=== PATIENT | male | born 1955 | race Caucasian/White ===

== ENCOUNTER 2016-09-06 16:41 | Emergency (ER) | payer MEDICARE, OTHER ==
[~2016-09-06] VITALS: Ht 182.9 cm; Wt 172.4 kg
[~2016-09-06 16:41] MED LIST: AMLO5TAB2 PO; ASPI-482 PO; ATOR20TA58 PO; BUPR150T8 PO; CYCL10TA2 PO; ETOD400T PO; FENO145T2 PO; FURO-69 PO; INSU100C4 SQ; INSU100V13 SQ; LISI40TA PO; MONT10TA6 PO; OXYC-250 PO; OXYC10TA32 PO; SITA1TAB11 PO
[2016-09-06 16:53] VITALS: BP 182/92
[2016-09-06] MEDS ORDERED: BUPIVACAINE MPF 0.25% 10 ML VIAL. IJ ONE (17:15)
--- NOTE | 2016-09-06 17:36 | PHYS DOC ---
Past Medical History Past Medical History: Diabetes-Type II, Hypertension Additional Past Medical Histor: chronic back, ankle, knee pain Past Surgical History: Tonsillectomy, Other Additional Past Surgical Histo: bilat arm surgery Alcohol Use: None Drug Use: None Adult General Chief Complaint Chief Complaint: LACERATION/AVULSION [facility] HPI Patient is a 61 year old male presents emergency Department with complaint of a laceration to his left hand that occurred approximately an hour prior to arrival. Patient states he is using an X-Acto knife when he cut his hand. Patient denies any additional injuries or concerns at this time. He denies any numbness or tingling. He denies being on anticoagulants. Patient reports his last tetanus shot was approximately 2 years ago. Review of Systems Review of Systems Constitutional: Denies fever or chills [] Eyes: Denies change in visual acuity, redness, or eye pain [] HENT: Denies nasal congestion or sore throat [] Respiratory: Denies cough or shortness of breath [] Cardiovascular: No additional information not addressed in HPI [] GI: Denies abdominal pain, nausea, vomiting, bloody stools or diarrhea [] : Denies dysuria or hematuria [] Musculoskeletal: Denies back pain or joint pain [] Integument: Denies rash or skin lesions [] Neurologic: Denies headache, focal weakness or sensory changes [] Endocrine: Denies polyuria or polydipsia [] Current Medications Current Medications Current Medications Medications (Trade) Dose Ordered Sig/Pradeep Start Time Stop Time Status Last Admin Dose Admin Bupivacaine HCl (Sensorcaine-Mpf 0.25%) 10 ml 1X ONCE 09/06/16 17:15 09/06/16 17:16 DC 09/06/16 17:11 10 ML Allergies Allergies Allergies Coded Allergies Type Severity Reaction Last Updated Verified Sulfa (Sulfonamide Antibiotics) Allergy Intermediate Rash 06/17/15 No Physical Exam Physical Exam Constitutional: Well developed, well nourished, no acute distress, non-toxic appearance. [] HENT: Normocephalic, atraumatic, bilateral external ears normal, oropharynx moist, no oral exudates, nose normal. [] Eyes: PERRLA, EOMI, conjunctiva normal, no discharge. [] Neck: Normal range of motion, no tenderness, supple, no stridor. [] Cardiovascular:Heart rate regular rhythm, no murmur [] Lungs & Thorax: Bilateral breath sounds clear to auscultation [] Abdomen: Bowel sounds normal, soft, no tenderness, no masses, no pulsatile masses. [] Skin: Warm, dry, no erythema, no rash. [] Back: No tenderness, no CVA tenderness. [] Extremities: 3 similar laceration to the left thenar eminence. This laceration does extend into the thenar muscle. Patient is able to circumduct, flex and extend his thumb at the first MCP J and IPJ. Thumbs neurovascular intact with capillary refill less than 2 seconds. Neurologic: Alert and oriented X 3, normal motor function, normal sensory function, no focal deficits noted. [] Psychologic: Affect normal, judgement normal, mood normal. [] Current Patient Data Vital Signs Vital Signs Date Time Temp Pulse Resp B/P Pulse Ox O2 Delivery O2 Flow Rate FiO2 09/06/16 16:53 98.0 80 22 100 Room Air 98.0 EKG EKG [] Radiology/Procedures Radiology/Procedures Procedure note: 3 cm laceration was anesthetized with 0.25% Marcaine. Wound was cleansed with Betadine solution and rinsed with copious amounts of saline. Wound was explored for foreign bodies. No foreign bodies were found. Wound margins were approximated utilizing 4-0 Prolene in a simple interrupted fashion of a deep, single-layer closure for total of 6 stitches. Pressure dressing was placed over top the wound. Patient tolerated the procedure well. Patient was reexamined post bandaging in all 5 fingers are found to be neurovascularly intact with capillary refill less than 2 seconds. Course & Med Decision Making Course & Med Decision Making Pertinent Labs and Imaging studies reviewed. (See chart for details) [] Dragon Disclaimer Dragon Disclaimer This electronic medical record was generated, in whole or in part, using a voice recognition dictation system. Departure Departure Impression: Primary Impression: Laceration Disposition: 01 HOME, SELF-CARE Condition: IMPROVED Referrals: OMERO COHN MD (PCP) Patient Instructions: Laceration Care, Adult, [id number] Additional Instructions: 1. Stitches need to be removed in 7-10 days. 2. Review the discharge instructions provided for self-care and reasons to return to the emergency department. 3. Keep this initial dressing on until tomorrow morning. Your okay to wash your hands and shower without a dressing beginning tomorrow. Keep the area dressed during periods of activity. 4. Contact her primary care doctor's office Thursday morning to schedule follow- up appointment for wound evaluation and suture removal. SHAINA MCKINNON Sep 06, 2016 17:36
== END 2016-09-06 17:46 | disposition home or self-care (01) ==
LOC: ER 16:41
DX: S61.412A Laceration without foreign body of left hand, initial encounter (principal); I10 Essential (primary) hypertension; E11.9 Type 2 diabetes mellitus without complications; G89.29 Other chronic pain; Z88.2 Allergy status to sulfonamides; W26.0XXA Contact with knife, initial encounter; Y93.89 Activity, other specified; Y99.8 Other external cause status; Y92.89 Other specified places as the place of occurrence of the external cause
CPT/HCPCS: 12002; 99283; J3490

== ENCOUNTER 2017-10-16 10:21 | Emergency (ER) | payer OTHER ==
[2017-10-16 11:49] LABS: ADD MAN DIFF? NO
[2017-10-16 12:11] LABS: BASO % 1 % (0-3); EOS # 0.2 x10^3/uL (0.0-0.7); EOS % 3 % (0-3); HEMATOCRIT 41.3 % (39.0-53.0); HEMOGLOBIN 14.1 g/dL (13.0-17.5); LYMPH # 1.4 x10^3/uL (1.0-4.8); LYMPH % 19 % (24-48); MEAN CORPUSCULAR HEMOGLOBIN 30 pg (25-35); MEAN CORPUSCULAR HGB CONC 34 g/dL (31-37); MEAN CORPUSCULAR VOLUME 87 fL (79-100); MONO # 0.4 x10^3/uL (0.0-1.1); MONO % 5 % (0-9); NEUT # 5.3 x10^3uL (1.8-7.7); NEUT % 72 % (31-73); PLATELET COUNT 208 x10^3/uL (140-400); RED BLOOD COUNT 4.73 x10^6/uL (4.30-5.70); RED CELL DISTRIBUTION WIDTH 14.8 % (11.5-14.5); WHITE BLOOD COUNT 7.4 x10^3/uL (4.0-11.0)
[2017-10-16 12:17] LABS: ALBUMIN 3.9 g/dL (3.4-5.0); ALBUMIN/GLOBULIN RATIO 1.1 (1.0-1.7); ALK PHOS 61 U/L (46-116); ALT (SGPT) 49 U/L (16-63); ANION GAP 9 (6-14); AST (SGOT) 32 U/L (15-37); BLOOD UREA NITROGEN 35 mg/dL (8-26); BUN/CREATININE RATIO 21 (6-20); CALCIUM 9.2 mg/dL (8.5-10.1); CARBON DIOXIDE 25 mmol/L (21-32); CHLORIDE 106 mmol/L (98-107); CREATININE 1.7 mg/dL (0.7-1.3); GFR 41.3; GLUCOSE 141 mg/dL (70-99); POTASSIUM 4.9 mmol/L (3.5-5.1); SODIUM 140 mmol/L (136-145); TOTAL BILIRUBIN 0.5 mg/dL (0.2-1.0); TOTAL PROTEIN 7.3 g/dL (6.4-8.2)
[2017-10-16 12:20] LABS: TROPONINI < 0.017 ng/mL (0.000-0.055)
[2017-10-16 12:48] LABS: NT-PRO BNP 108 pg/mL (0-124)
== END 2017-10-16 13:09 | disposition home or self-care (01) ==
LOC: ER 10:21
DX: J18.9 Pneumonia, unspecified organism (principal); E11.9 Type 2 diabetes mellitus without complications; I10 Essential (primary) hypertension; G89.29 Other chronic pain; E78.00 Pure hypercholesterolemia, unspecified; Z88.2 Allergy status to sulfonamides
CPT/HCPCS: 36415; 71045; 80053; 83880; 84484; 85025; 93005; 99285-25

== ENCOUNTER → 2017-11-04 | Day surgery (SDC) | payer OTHER ==
[~2017-11-04] MED LIST changes: -AMLO5TAB2 PO; -ASPI-482 PO; -ATOR20TA58 PO; -BUPR150T8 PO; -CYCL10TA2 PO; -ETOD400T PO; -FENO145T2 PO; -FURO-69 PO; -INSU100C4 SQ; -INSU100V13 SQ; +LIDOCAINE 1% PF 2 ML VIAL. ID; -LISI40TA PO; -MONT10TA6 PO; +MORPHINE SULFATE 4 MG/ML DISP.SYRIN. IV; +ONDANSETRON PF 4 MG/2 ML VIAL. IV; -OXYC-250 PO; -OXYC10TA32 PO; +PROCHLORPERAZINE 10 MG/2 ML VIAL. IV; +PROPOFOL 20 ML IV; -SITA1TAB11 PO; +fentaNYL PF VIAL 100 MCG/2 ML VIAL IV
[2017-11-04] MEDS: IV RINGERS,LACTATED 1000ML 1,000 ML IV ×2 (07:27)
== END ==
LOC: ENDOS 06:45
DX: Z12.11 Encounter for screening for malignant neoplasm of colon (principal); K64.0 First degree hemorrhoids (principal); F41.9 Anxiety disorder, unspecified; Z86.010 Personal history of colon polyps; M19.90 Unspecified osteoarthritis, unspecified site; E11.9 Type 2 diabetes mellitus without complications; E78.00 Pure hypercholesterolemia, unspecified; I10 Essential (primary) hypertension; J45.909 Unspecified asthma, uncomplicated; Z83.3 Family history of diabetes mellitus; Z82.49 Family history of ischemic heart disease and other diseases of the circulatory system; Z79.84 Long term (current) use of oral hypoglycemic drugs; Z79.899 Other long term (current) drug therapy; E66.3 Overweight; Z68.43 Body mass index [BMI] 50.0-59.9, adult; Z88.2 Allergy status to sulfonamides; Z91.040 Latex allergy status
CPT/HCPCS: 45378; J2704

== ENCOUNTER 2020-01-02 12:57 | Inpatient (IN) | payer OTHER, MEDICAID ==
[~2020-01-02] VITALS: Ht 180.3 cm; Wt 164.0 kg
[~2020-01-02 12:57] MED LIST changes: +AMLO10TA8 PO; +AMLO5TAB10 PO; +ASPI-482 PO; +ATOR20TA58 PO; +BUPR150T8 PO; +CYCL10TA2 PO; +DOXY100T PO; +ETOD400T PO; +FENO145T3 PO; +FURO-69 PO; +INSU100C4 SQ; +INSU100V13 SQ; +INSU200I4 SQ; -LIDOCAINE 1% PF 2 ML VIAL. ID; +LISI-130 PO; +MONT10TA49 PO; -MORPHINE SULFATE 4 MG/ML DISP.SYRIN. IV; -ONDANSETRON PF 4 MG/2 ML VIAL. IV; +OXYC10TA46 PO; +OXYC1TAB22 PO; -PROCHLORPERAZINE 10 MG/2 ML VIAL. IV; -PROPOFOL 20 ML IV; +SITA1TAB11 PO; +TRIA1TAB5 PO; -fentaNYL PF VIAL 100 MCG/2 ML VIAL IV
[2020-01-02 13:39] LABS: BASO % 1 % (0-3); EOS # 0.2 x10^3/uL (0.0-0.7); EOS % 4 % (0-3); HEMATOCRIT 39.4 % (39.0-53.0); HEMOGLOBIN 13.4 g/dL (13.0-17.5); LYMPH # 1.1 x10^3/uL (1.0-4.8); LYMPH % 19 % (24-48); MEAN CORPUSCULAR HEMOGLOBIN 30 pg (25-35); MEAN CORPUSCULAR HGB CONC 34 g/dL (31-37); MEAN CORPUSCULAR VOLUME 87 fL (79-100); MONO # 0.4 x10^3/uL (0.0-1.1); MONO % 7 % (0-9); NEUT # 4.1 x10^3/uL (1.8-7.7); NEUT % 69 % (31-73); PLATELET COUNT 182 x10^3/uL (140-400); RED BLOOD COUNT 4.55 x10^6/uL (4.30-5.70); RED CELL DISTRIBUTION WIDTH 14.3 % (11.5-14.5); WHITE BLOOD COUNT 5.9 x10^3/uL (4.0-11.0)
[2020-01-02 13:44] LABS: CALCIUM 8.9 mg/dL (8.5-10.1); CREATININE 2.9 mg/dL (0.7-1.3); GFR 22.2; POTASSIUM 4.8 mmol/L (3.5-5.1)
[2020-01-02 13:48] LABS: PROTHROMBIN TIME PATIENT 13.3 SEC (11.7-14.0)
[2020-01-02 13:50] LABS: ALBUMIN 3.8 g/dL (3.4-5.0); ALBUMIN/GLOBULIN RATIO 1.1 (1.0-1.7); MAGNESIUM 2.2 mg/dL (1.8-2.4); TOTAL BILIRUBIN 0.4 mg/dL (0.2-1.0); TOTAL PROTEIN 7.4 g/dL (6.4-8.2)
--- NOTE | 2020-01-02 14:10 | RAD ---
PORTABLE CHEST 1V History: Reason: soa / Spl. Instructions: / History: Comparison: July 25, 2018 Findings: No consolidation or pleural effusion. Normal heart size. No pneumothorax. Impression: 1. No acute cardiopulmonary process. Electronically signed by: Wes Gabriel DO (01/02/2020 2:07 PM) [facility] [place]
--- NOTE | 2020-01-02 15:44 | PHYS DOC ---
Past Medical History Past Medical History: Diabetes-Type II, High Cholesterol, Hypertension, Pneumonia, Other Additional Past Medical Histor: chronic back/ankle/knee pain, OBESE Past Surgical History: Tonsillectomy, Other Additional Past Surgical Histo: bilat Carpel tunnel/Radial nerve/EYE Smoking Status: Never Smoker Alcohol Use: None Drug Use: None General Adult EDM: Chief Complaint: SHORTNESS OF BREATH HPI: HPI: Patient is a 64 year old male who presented to ER today for evaluation of 4-day history of trouble breathing, general weakness. Patient feels like he had pneumonia again. Patient denies any fever. Patient states that today he start having left side substernal chest pain associated with dyspnea on exertion. Patient denies any fever, patient denies abdominal pain, no nausea vomiting. Patient said he is on some medication to control his blood pressure but also really moved fluid from his body, he felt that he is on too much of it because sometimes he feels really dry. Patient denies any kidney problem in the past. Denies being exposed to anybody who tested positive for COVID-19. Review of Systems: Review of Systems: Constitutional: Denies fever or chills. [] Eyes: Denies change in visual acuity. [] HENT: Denies nasal congestion or sore throat. [] Respiratory: Positive for cough and trouble breathing Cardiovascular: Positive for chest pain GI: Denies abdominal pain, nausea, vomiting, bloody stools or diarrhea. [] : Denies dysuria. [] Musculoskeletal: Denies back pain or joint pain. [] Integument: Denies rash. [] Neurologic: Denies headache, focal weakness or sensory changes. [] Endocrine: Denies polyuria or polydipsia. [] Lymphatic: Denies swollen glands. [] Psychiatric: Denies depression or anxiety. [] Heart Score: HEART Score for Chest Pain: HEART Score for Chest Pain Response (Comments) Value History Moderately Suspicious 1 ECG Nonspecific Repolarizatio 1 Age >45 - < 65 1 Risk Factors >3 Risk Factors or Hx CAD 2 Total 5 Risk Factors: Risk Factors: DM, Current or recent (<one month) smoker, HTN, HLP, family history of CAD, obesity. Risk Scores: Score 0 - 3: 2.5% MACE over next 6 weeks - Discharge Home Score 4 - 6: 20.3% MACE over next 6 weeks - Admit for Clinical Observation Score 7 - 10: 72.7% MACE over next 6 weeks - Early Invasive Strategies Current Medications: Current Medications Medications (Trade) Dose Ordered Sig/Pradeep Start Time Stop Time Status Last Admin Dose Admin Sodium Chloride 1,000 ml @ 1,000 mls/hr 1X ONCE 01/02/20 15:45 01/02/20 16:44 Allergies: Allergies: Allergies Coded Allergies Type Severity Reaction Last Updated Verified Sulfa (Sulfonamide Antibiotics) Allergy Intermediate Rash 11/04/17 No Physical Exam: PE: Constitutional: Well developed, well nourished, no acute distress, non-toxic appearance. [] HENT: Normocephalic, atraumatic, bilateral external ears normal, oropharynx moist, no oral exudates, nose normal. [] Eyes: PERRLA, EOMI, conjunctiva normal, no discharge. [] Neck: Normal range of motion, no tenderness, supple, no stridor. [] Cardiovascular:Heart rate regular rhythm, no murmur [] Lungs & Thorax: Bilateral breath sounds clear to auscultation [] Abdomen: Bowel sounds normal, soft, no tenderness, no masses, no pulsatile masses. [] Skin: Warm, dry, no erythema, no rash. [] Back: No tenderness, no CVA tenderness. [] Extremities: No tenderness, no cyanosis, no clubbing, ROM intact, no edema. [] Neurologic: Alert and oriented X 3, normal motor function, normal sensory function, no focal deficits noted. [] Psychologic: Affect normal, judgement normal, mood normal. [] Current Patient Data: Labs: Laboratory Tests Test 01/02/20 13:22 White Blood Count 5.9 x10^3/uL (4.0-11.0) Red Blood Count 4.55 x10^6/uL (4.30-5.70) Hemoglobin 13.4 g/dL (13.0-17.5) Hematocrit 39.4 % (39.0-53.0) Mean Corpuscular Volume 87 fL (79-100) Mean Corpuscular Hemoglobin 30 pg (25-35) Mean Corpuscular Hemoglobin Concent 34 g/dL (31-37) Red Cell Distribution Width 14.3 % (11.5-14.5) Platelet Count 182 x10^3/uL (140-400) Neutrophils (%) (Auto) 69 % (31-73) Lymphocytes (%) (Auto) 19 % (24-48) L Monocytes (%) (Auto) 7 % (0-9) Eosinophils (%) (Auto) 4 % (0-3) H Basophils (%) (Auto) 1 % (0-3) Neutrophils # (Auto) 4.1 x10^3/uL (1.8-7.7) Lymphocytes # (Auto) 1.1 x10^3/uL (1.0-4.8) Monocytes # (Auto) 0.4 x10^3/uL (0.0-1.1) Eosinophils # (Auto) 0.2 x10^3/uL (0.0-0.7) Basophils # (Auto) 0.0 x10^3/uL (0.0-0.2) Prothrombin Time 13.3 SEC (11.7-14.0) Prothrombin Time INR 1.1 (0.8-1.1) Activated Partial Thromboplast Time 27 SEC (24-38) Sodium Level 136 mmol/L (136-145) Potassium Level 4.8 mmol/L (3.5-5.1) Chloride Level 103 mmol/L (98-107) Carbon Dioxide Level 27 mmol/L (21-32) Anion Gap 6 (6-14) Blood Urea Nitrogen 54 mg/dL (8-26) H Creatinine 2.9 mg/dL (0.7-1.3) H Estimated GFR (Cockcroft-Gault) 22.2 BUN/Creatinine Ratio 19 (6-20) Glucose Level 104 mg/dL (70-99) H Calcium Level 8.9 mg/dL (8.5-10.1) Magnesium Level 2.2 mg/dL (1.8-2.4) Total Bilirubin 0.4 mg/dL (0.2-1.0) Aspartate Amino Transferase (AST) 15 U/L (15-37) Alanine Aminotransferase (ALT) 31 U/L (16-63) Alkaline Phosphatase 47 U/L (46-116) Troponin I Quantitative < 0.017 ng/mL (0.000-0.055) NM-Jlv-H-Type Natriuretic Peptide 257 pg/mL (0-124) H Total Protein 7.4 g/dL (6.4-8.2) Albumin 3.8 g/dL (3.4-5.0) Albumin/Globulin Ratio 1.1 (1.0-1.7) Lipase 66 U/L (73-393) L Laboratory Tests 01/02/20 13:22 Laboratory Tests 01/02/20 13:22 Vital Signs: Vital Signs Date Time Temp Pulse Resp B/P (MAP) Pulse Ox O2 Delivery O2 Flow Rate FiO2 01/02/20 13:04 98.5 63 20 119/60 (79) 100 Room Air 98.5 EKG: EKG: EKG show heart rate of [address] segment elevation. Radiology/Procedures: Radiology/Procedures: [][facility] [address] [place] [address] IMAGING REPORT Signed PATIENT: AKILA HOLBROOK ACCOUNT: [id number] : 1955 LOCATION: ER AGE: 64 SEX: M EXAM STATUS: REG ER ORD. PHYSICIAN: ДМИТРИЙ RITTER DO REASON: soa PROCEDURE: PORTABLE CHEST 1V PORTABLE CHEST 1V History: Reason: soa / Spl. Instructions: / History: Comparison: July 25, 2018 Findings: No consolidation or pleural effusion. Normal heart size. No pneumothorax. Impression: 1. No acute cardiopulmonary process. Electronically signed by: Wes Gabriel DO (01/02/2020 2:07 PM) [facility] DICTATED and SIGNED BY: WES GABRIEL DO DATE: 01/02/20 1407 Course & Med Decision Making: Course & Med Decision Making Pertinent Labs and Imaging studies reviewed. (See chart for details) Patient is a 64-year-old male who was evaluated in ER due to general weakness, nonproductive cough, trouble breathing, chest pain. Patient was found to be in acute renal failure most likely from the antidiuretic medication that he is on. Patient is suspected have COVID 19 infection due to cough and trouble breathing. His heart score is high, he will be admitted to hospital for further evaluation and treatment. Discussed with Dr. Miranda who agreed to admit the patient Dragnimo Disclaimer: Krystle Disclaimer: This electronic medical record was generated, in whole or in part, using a voice recognition dictation system. Departure Departure Impression: Primary Impression: Acute renal failure Additional Impressions: Chest pain Suspected 2018 novel coronavirus infection Disposition: ADMITTED INPATIENT Admitting Physician: ROBERT (Dr. Miranda) Condition: STABLE Referrals: OMERO COHN MD (PCP) Justicifation of Admission Dx: Justifications for Admission: Justification of Admission Dx: Yes Acute Renal Failure: 3-Fold Rise in Serum Crea ДМИТРИЙ RITTER DO Jan 02, 2020 15:44
[2020-01-02] MEDS ORDERED: IV NORMAL SALINE 1000ML BAG 1,000 ML IV ONE (15:45)
[2020-01-02] MEDS ORDERED: CYCLOBENZAPRINE 10 MG TABLET. PO PRN (20:15)
--- NOTE | 2020-01-02 20:16 | HP ---
ADMIT DATE: 01/02/2020 CHIEF COMPLAINT: Chest pain and shortness of breath. HISTORY OF PRESENT ILLNESS: The patient is a pleasant 64-year-old male who has been short of breath for the past 4 days. He has some weakness. He also has some chest discomfort. States he has chronic edema, so he takes Lasix. He thinks he took too much Lasix and admits that he has been taking more than he was prescribed. Sure enough now his BUN and creatinine are high at 54 and 2.9. His pressures run a little low at 102/39. I discussed the case with the ER physician. We are going to admit the patient and consult Cardiology and Nephrology. PAST MEDICAL HISTORY: Overweight, chronic edema, muscle spasms, hyperlipidemia, hypertension, noncompliance, chronic pain, arthritis, asthma, diabetes. ALLERGIES: SULFA. FAMILY HISTORY: Diabetes. SOCIAL HISTORY: He used to work in a [employer]. He does not smoke or take drugs. MEDICATIONS: Reviewed, please refer to the MRAD. REVIEW OF SYSTEMS: GENERAL: No history of weight change, or fevers. He complains of weakness. SKIN: No bruising, hair changes or rashes. EYES: No blurred, double or loss of vision. NOSE AND THROAT: No history of nosebleeds, hoarseness or sore throat. HEART: No history of palpitations, or shortness of breath on exertion. He complains of chest pain. LUNGS: Denies cough, hemoptysis or wheezing. He complains of shortness of breath. GASTROINTESTINAL: Denies changes in appetite, nausea, vomiting, diarrhea or constipation. GENITOURINARY: No history of frequency, urgency, hesitancy or nocturia. NEUROLOGIC: Denies history of numbness, tingling, tremor or weakness. PSYCHIATRIC: No history of panic, anxiety or depression. ENDOCRINE: No history of heat or cold intolerance, polyuria or polydipsia. EXTREMITIES: He complains of edema. LABORATORY DATA: BUN and creatinine are 54 and 2.9. BNP 257. Troponin 0.017. Lipase 66. INR 1.1. White count 5.9, hemoglobin 13.4, platelets 182. Chest x-ray, no acute disease. ASSESSMENT AND PLAN: Shortness of breath and edema and chest discomfort and renal failure. The patient has been admitted. We will consult Cardiology and Nephrology. Gentle IV hydration if the consultants agree. Home meds, DVT prophylaxis. Full code. Serial enzymes, serial EKGs, cardiac monitoring. We are checking him for COVID-19. ALISE BURGESS DO DR: RAE/bhupinder JOB#: [id number] / [id number]
[2020-01-02 20:35] VITALS: BP 163/79
--- NOTE | 2020-01-02 20:35 | NUR ---
The patient, AKILA HOLBROOK, 64 y/o, M admitted by ALISE BURGESS III, DO, was given written information regarding hospital policies, unit procedures and contact persons. patient arrived to room via wheelchair assisted by ED staff member. Valuables were checked and noted. Patient is currently sitting in bed watching TV at this time. Patient denies any needs at this time. This RN will continue to monitor the patient at this time.
[2020-01-02] MEDS ORDERED: ATORVASTATIN CALCIUM 20 MG TABLET PO SCH (21:00)
[2020-01-02] MEDS: oxyCODONE/APAP 10/325 1 TAB TABLET PO SCH (21:38)
[2020-01-02 23:00] VITALS: BP 162/72
[2020-01-03 02:50] VITALS: BP 161/75
--- NOTE | 2020-01-03 03:05 | EKG ---
[facility] [address] [place] [address] Test Date: 2020-01-02 Test Time: 13:13:03 Pat Name: AKILA HOLBROOK Department: Room: Gender: M Electrical Contractor: : 1955 Requested By: ДМИТРИЙ RITTER Order Number: [id number] Reading MD: Measurements Intervals [place] Rate: 59 P: [place]: QRS: 24 QRSD: 88 T: 116 QT: 400 QTc: 396 Interpretive Statements IRREGULAR RHYTHM, NO P-WAVE FOUND QRS(T) CONTOUR ABNORMALITY CONSIDER ANTEROLATERAL MYOCARDIAL DAMAGE T ABNORMALITY IN INFERIOR LEADS ABNORMAL ECG RI6.01 No previous ECG available for comparison
[2020-01-03 07:15] VITALS: BP 137/87
[2020-01-03] MEDS: oxyCODONE/APAP 10/325 1 TAB TABLET PO SCH ×2 (08:00→14:00)
[2020-01-03] MEDS: MONTELUKAST SODIUM 10 MG TABLET. PO SCH ×2 (08:38→09:00)
[2020-01-03] MEDS: ASPIRIN ENTERIC COATED 81 MG TABLET.DR. PO SCH ×2 (08:39→09:00)
[2020-01-03] MEDS ORDERED: LISINOPRIL 20 MG TABLET PO SCH (09:00)
--- NOTE | 2020-01-03 09:53 | NUR ---
SW following. Spoke with RN and reviewed chart. Pt from home with roommate. Spoke with pt who stated he would like to discharge today if possible, as he wants to get home to his pets. Pt stated not concerns about returning home. Nephrology has been consulted. Pt on room air and PO medications. Pt COVID pending. SW to follow as needed but there are likely no SW needs at discharge. Addendum: 01/03/20 at 1611 by ALFA PURI RN notified SW of pt discharge. No SW needs per RN. Pt on room air and oral medications.
[2020-01-03 11:04] VITALS: BP 165/74
--- NOTE | 2020-01-03 11:31 | PDOC ---
[employer] PROGRESS NOTE Chief Complaint Chief Complaint Shortness of breath and edema and chest discomfort and renal failure. Overweight, chronic edema, muscle spasms, hyperlipidemia, hypertension, noncompliance, chronic pain, arthritis, asthma, diabetes. History of Present Illness History of Present Illness 01/03/2020 Patient seen and examined Discussed with RN Chart reviewed Vitals/I&O Vitals/I&O: Vital Signs Date Time Temp Pulse Resp B/P (MAP) Pulse Ox O2 Delivery O2 Flow Rate FiO2 01/03/20 11:04 97.7 67 23 165/74 (104) 93 Nasal Cannula 97.7 I & O 01/02/20 01/02/20 01/03/20 15:00 23:00 07:00 Intake Total 1000 ml Output Total 200 ml Balance 800 ml Physical Exam General: Alert, Oriented X3, Other (Insist on going home because he has 13 cats to care for) Heart: Regular rate Lungs: Clear, Other Abdomen: Normal bowel sounds Extremities: No clubbing Skin: No rashes Labs Labs: Laboratory Tests Test 01/02/20 13:22 White Blood Count 5.9 x10^3/uL (4.0-11.0) Red Blood Count 4.55 x10^6/uL (4.30-5.70) Hemoglobin 13.4 g/dL (13.0-17.5) Hematocrit 39.4 % (39.0-53.0) Mean Corpuscular Volume 87 fL (79-100) Mean Corpuscular Hemoglobin 30 pg (25-35) Mean Corpuscular Hemoglobin Concent 34 g/dL (31-37) Red Cell Distribution Width 14.3 % (11.5-14.5) Platelet Count 182 x10^3/uL (140-400) Neutrophils (%) (Auto) 69 % (31-73) Lymphocytes (%) (Auto) 19 % (24-48) Monocytes (%) (Auto) 7 % (0-9) Eosinophils (%) (Auto) 4 % (0-3) Basophils (%) (Auto) 1 % (0-3) Neutrophils # (Auto) 4.1 x10^3/uL (1.8-7.7) Lymphocytes # (Auto) 1.1 x10^3/uL (1.0-4.8) Monocytes # (Auto) 0.4 x10^3/uL (0.0-1.1) Eosinophils # (Auto) 0.2 x10^3/uL (0.0-0.7) Basophils # (Auto) 0.0 x10^3/uL (0.0-0.2) Prothrombin Time 13.3 SEC (11.7-14.0) Prothromb Time International Ratio 1.1 (0.8-1.1) Activated Partial Thromboplast Time 27 SEC (24-38) Sodium Level 136 mmol/L (136-145) Potassium Level 4.8 mmol/L (3.5-5.1) Chloride Level 103 mmol/L (98-107) Carbon Dioxide Level 27 mmol/L (21-32) Anion Gap 6 (6-14) Blood Urea Nitrogen 54 mg/dL (8-26) Creatinine 2.9 mg/dL (0.7-1.3) Estimated GFR (Cockcroft-Gault) 22.2 BUN/Creatinine Ratio 19 (6-20) Glucose Level 104 mg/dL (70-99) Calcium Level 8.9 mg/dL (8.5-10.1) Magnesium Level 2.2 mg/dL (1.8-2.4) Total Bilirubin 0.4 mg/dL (0.2-1.0) Aspartate Amino Transf (AST/SGOT) 15 U/L (15-37) Alanine Aminotransferase (ALT/SGPT) 31 U/L (16-63) Alkaline Phosphatase 47 U/L (46-116) Troponin I Quantitative < 0.017 ng/mL (0.000-0.055) SX-Vmm-V-Type Natriuretic Peptide 257 pg/mL (0-124) Total Protein 7.4 g/dL (6.4-8.2) Albumin 3.8 g/dL (3.4-5.0) Albumin/Globulin Ratio 1.1 (1.0-1.7) Lipase 66 U/L (73-393) Assessment and Plan Assessmemt and Plan Problems Medical Problems: (1) Acute renal failure Status: Acute (2) Chest pain Status: Acute (3) Suspected 2019 novel coronavirus infection Status: Acute Shortness of breath and edema and chest discomfort and renal failure. Overweight, chronic edema, muscle spasms, hyperlipidemia, hypertension, noncompliance, chronic pain, arthritis, asthma, diabetes. Plan If his COVID test is negative I suspect he could go home Continue current care Appreciate subspecialist input Home meds DVT prophylaxis Full code Cardiac monitoring Respiratory isolation until his COVID test is back Comment Review of Relevant I have reviewed the following items gerald (where applicable) has been applied. Medications: Current Medications Medications (Trade) Dose Ordered Sig/Pradeep Route PRN Reason Start Time Stop Time Status Last Admin Dose Admin Sodium Chloride 1,000 ml @ 1,000 mls/hr 1X ONCE IV 01/02/20 15:45 01/02/20 16:44 DC 01/02/20 15:55 Atorvastatin Calcium (Lipitor) 20 mg HS PO 01/02/20 21:00 01/02/20 21:27 Lisinopril (Prinivil) 40 mg DAILY PO 01/03/20 09:00 01/03/20 08:39 Oxycodone/ Acetaminophen (Percocet 10/325) 1 tab Q8HRS PO 01/02/20 22:00 01/02/20 21:38 Justicifation of Admission Dx: Justifications for Admission: Justification of Admission Dx: Yes Acute Renal Failure: 3-Fold Rise in Serum Crea ALISE BURGESS III DO Jan 03, 2020 11:31
--- NOTE | 2020-01-03 12:08 | PDOC2 ---
CONSULT Date of Consult Date of Consult DATE: 01/03/20 TIME: 12:01 Reason for Consult Reason for Consult: RENAL FAILURE Referring Physician Referring Physician: JENIFER Identification/Chief Complaint Chief Complaint SOB Source Source: Chart review, Patient History of Present Illness Reason for Visit: THIS IS A 64 YR OLD WITH SOB FOR SEVERAL DAYS. BUT FEELS THIS IS MOSTLY NASAL CONGESTION. HX NOTABLE FOR CKD STAGE 3. HAS NOT SEEN RENAL IN THE PAST. HAS A CR OF 1.5-2.0 AT BASELINE. CURRENTLY CR OF 2.9. STATES THAT HE IS VERY LABILE WITH HIS FLUIDS. HAS NEEDED TO ADJUST AND EVEN HOLD HIS DIURETICS AT TIMES. HE FEELS THAT HE MAY HAVE USED TOO MUCH RECENTLY. USUALLY HAS LE EDEMA BUT THIS IS RESOLVED AT THIS TIME. CKD DUE TO DM II AND HTN. NO OTHER HX Past Medical History Cardiovascular: CAD, HTN, Hyperlipidemia, Other Pulmonary: Asthma CENTRAL NERVOUS SYSTEM: Other GI: No pertinent hx Heme/Onc: No pertinent hx Hepatobiliary: No pertinent hx Psych: No pertinent hx Musculoskeletal: low back pain, Osteoarthritis, Other Renal/: Chronic renal insuff Endocrine: Diabetes Past Surgical History Past Surgical History: Cataract Removal, Tonsillectomy, Other Family History Family History: No Significant Social History ALCOHOL: none Drugs: None Lives: Friends Current Problem List Problem List Problems Medical Problems: (1) Acute renal failure Status: Acute (2) Chest pain Status: Acute (3) Suspected 2019 novel coronavirus infection Status: Acute Current Medications Current Medications Current Medications Sodium Chloride 1,000 ml @ 1,000 mls/hr 1X ONCE IV Last administered on 01/01at 15:55; Start 01/02/20 at 15:45; Stop 01/02/20 at 16:44; Status DC Aspirin (Ecotrin) 81 mg DAILY PO ; Start 01/03/20 at 09:00 Atorvastatin Calcium (Lipitor) 20 mg HS PO Last administered on 01/02/20at 21:27; Start 01/02/20 at 21:00 Cyclobenzaprine HCl (Flexeril) 10 mg PRN Q8HRS PRN PO PAIN; Start 01/02/20 at 20:15 Lisinopril (Prinivil) 40 mg DAILY PO Last administered on 01/03/20at 08:39; Start 01/03/20 at 09:00 Montelukast Sodium (Singulair) 10 mg DAILY PO ; Start 01/03/20 at 09:00 Oxycodone/ Acetaminophen (Percocet 10/325) 1 tab Q8HRS PO Last administered on 01/02/20at 21:38; Start 01/02/20 at 22:00 Active Scripts Active Reported Triamterene-Hctz 75-50 Mg Tab (Triamterene/Hydrochlorothiazid) 1 Each Tablet 1 Tab PO DAILY Amlodipine Besylate 10 Mg Tablet 10 Mg PO DAILY Tresiba Flextouch U-200 (Insulin Degludec) 200 Unit/1 Ml Insuln.pen 150 Unit SQ HS Aspir 81 (Aspirin) 81 Mg Tablet.dr 1 Tab PO DAILY LAST DOSE GIVEN: DATE: 06-20-15 TIME: 9 AM NEXT DOSE DUE: DATE: 06-21-15 TIME: 9 AM Atorvastatin Calcium 20 Mg Tablet 20 Mg PO HS Fenofibrate (Fenofibrate Nanocrystallized) 145 Mg Tablet 1 Tab PO DAILY LAST DOSE GIVEN: DATE: 06-20-15 TIME: 9 AM NEXT DOSE DUE: DATE: 06-21-15 TIME: 9 AM Cyclobenzaprine Hcl 10 Mg Tablet 1 Tab PO Q8HRS PRN Singulair Tablet (Montelukast Sodium) 10 Mg Tablet 1 Tab PO DAILY LAST DOSE GIVEN: DATE: 06-20-15 TIME: 9 AM NEXT DOSE DUE: DATE: 06-21-15 TIME: 9 AM Percocet 10-325 Mg Tablet (Oxycodone/Acetaminophen) 1 Each Tablet 1 Tab PO Q8HRS Lisinopril 40 Mg Tablet 1 Tab PO DAILY LAST DOSE GIVEN: DATE: 06-20-15 TIME: 9 AM NEXT DOSE DUE: DATE: 06-21-15 TIME: 9 AM Janumet 50-1,000 Mg Tablet (Sitagliptin Phos/Metformin Hcl) 1 Each Tablet 1 Tab PO BID not given today NEXT DOSE DUE: DATE: 06-21-15 TIME: 9 AM Allergies Allergies: Coded Allergies: Sulfa (Sulfonamide Antibiotics) (Unverified Allergy, Intermediate, Rash, 11/04/17) ROS General: YES: Fatigue, Malaise PSYCHOLOGICAL ROS: YES: Anxiety Eyes: Yes Decreased vision ALLERGY AND IMMUNOLOGY: YES: Seasonal Allergies Respiratory: YES: Cough, Shortness of breath Cardiovascular: yes Edema Gastrointestinal: Yes Constipation Genitourinary: YES Other (NOCTURIA) Musculoskeletal: Yes Muscular Weakness Neurological: Yes Weakness Skin: Yes Dry Skin Physical Exam General: Alert, Oriented X3, Cooperative, No acute distress HEENT: Atraumatic, PERRLA Lungs: Clear to auscultation, Normal air movement Heart: Regular rate Abdomen: Normal bowel sounds, Soft, No tenderness Skin: No rashes Neuro: Normal speech, Sensation intact Psych/Mental Status: Mental status NL, Mood NL MUSCULOSKELETAL: No joint tenderness, No deformity, No swelling Vitals VITALS Vital Signs Date Time Temp Pulse Resp B/P (MAP) Pulse Ox O2 Delivery O2 Flow Rate FiO2 01/03/20 11:04 97.7 67 23 165/74 (104) 93 Nasal Cannula 97.7 Labs Labs Laboratory Tests Test 01/02/20 13:22 White Blood Count 5.9 x10^3/uL (4.0-11.0) Red Blood Count 4.55 x10^6/uL (4.30-5.70) Hemoglobin 13.4 g/dL (13.0-17.5) Hematocrit 39.4 % (39.0-53.0) Mean Corpuscular Volume 87 fL (79-100) Mean Corpuscular Hemoglobin 30 pg (25-35) Mean Corpuscular Hemoglobin Concent 34 g/dL (31-37) Red Cell Distribution Width 14.3 % (11.5-14.5) Platelet Count 182 x10^3/uL (140-400) Neutrophils (%) (Auto) 69 % (31-73) Lymphocytes (%) (Auto) 19 % (24-48) Monocytes (%) (Auto) 7 % (0-9) Eosinophils (%) (Auto) 4 % (0-3) Basophils (%) (Auto) 1 % (0-3) Neutrophils # (Auto) 4.1 x10^3/uL (1.8-7.7) Lymphocytes # (Auto) 1.1 x10^3/uL (1.0-4.8) Monocytes # (Auto) 0.4 x10^3/uL (0.0-1.1) Eosinophils # (Auto) 0.2 x10^3/uL (0.0-0.7) Basophils # (Auto) 0.0 x10^3/uL (0.0-0.2) Prothrombin Time 13.3 SEC (11.7-14.0) Prothromb Time International Ratio 1.1 (0.8-1.1) Activated Partial Thromboplast Time 27 SEC (24-38) Sodium Level 136 mmol/L (136-145) Potassium Level 4.8 mmol/L (3.5-5.1) Chloride Level 103 mmol/L (98-107) Carbon Dioxide Level 27 mmol/L (21-32) Anion Gap 6 (6-14) Blood Urea Nitrogen 54 mg/dL (8-26) Creatinine 2.9 mg/dL (0.7-1.3) Estimated GFR (Cockcroft-Gault) 22.2 BUN/Creatinine Ratio 19 (6-20) Glucose Level 104 mg/dL (70-99) Calcium Level 8.9 mg/dL (8.5-10.1) Magnesium Level 2.2 mg/dL (1.8-2.4) Total Bilirubin 0.4 mg/dL (0.2-1.0) Aspartate Amino Transf (AST/SGOT) 15 U/L (15-37) Alanine Aminotransferase (ALT/SGPT) 31 U/L (16-63) Alkaline Phosphatase 47 U/L (46-116) Troponin I Quantitative < 0.017 ng/mL (0.000-0.055) NW-Ecm-Y-Type Natriuretic Peptide 257 pg/mL (0-124) Total Protein 7.4 g/dL (6.4-8.2) Albumin 3.8 g/dL (3.4-5.0) Albumin/Globulin Ratio 1.1 (1.0-1.7) Lipase 66 U/L (73-393) Laboratory Tests Test 01/02/20 13:22 White Blood Count 5.9 x10^3/uL (4.0-11.0) Red Blood Count 4.55 x10^6/uL (4.30-5.70) Hemoglobin 13.4 g/dL (13.0-17.5) Hematocrit 39.4 % (39.0-53.0) Mean Corpuscular Volume 87 fL (79-100) Mean Corpuscular Hemoglobin 30 pg (25-35) Mean Corpuscular Hemoglobin Concent 34 g/dL (31-37) Red Cell Distribution Width 14.3 % (11.5-14.5) Platelet Count 182 x10^3/uL (140-400) Neutrophils (%) (Auto) 69 % (31-73) Lymphocytes (%) (Auto) 19 % (24-48) Monocytes (%) (Auto) 7 % (0-9) Eosinophils (%) (Auto) 4 % (0-3) Basophils (%) (Auto) 1 % (0-3) Neutrophils # (Auto) 4.1 x10^3/uL (1.8-7.7) Lymphocytes # (Auto) 1.1 x10^3/uL (1.0-4.8) Monocytes # (Auto) 0.4 x10^3/uL (0.0-1.1) Eosinophils # (Auto) 0.2 x10^3/uL (0.0-0.7) Basophils # (Auto) 0.0 x10^3/uL (0.0-0.2) Prothrombin Time 13.3 SEC (11.7-14.0) Prothromb Time International Ratio 1.1 (0.8-1.1) Activated Partial Thromboplast Time 27 SEC (24-38) Sodium Level 136 mmol/L (136-145) Potassium Level 4.8 mmol/L (3.5-5.1) Chloride Level 103 mmol/L (98-107) Carbon Dioxide Level 27 mmol/L (21-32) Anion Gap 6 (6-14) Blood Urea Nitrogen 54 mg/dL (8-26) Creatinine 2.9 mg/dL (0.7-1.3) Estimated GFR (Cockcroft-Gault) 22.2 BUN/Creatinine Ratio 19 (6-20) Glucose Level 104 mg/dL (70-99) Calcium Level 8.9 mg/dL (8.5-10.1) Magnesium Level 2.2 mg/dL (1.8-2.4) Total Bilirubin 0.4 mg/dL (0.2-1.0) Aspartate Amino Transf (AST/SGOT) 15 U/L (15-37) Alanine Aminotransferase (ALT/SGPT) 31 U/L (16-63) Alkaline Phosphatase 47 U/L (46-116) Troponin I Quantitative < 0.017 ng/mL (0.000-0.055) WB-Gvc-H-Type Natriuretic Peptide 257 pg/mL (0-124) Total Protein 7.4 g/dL (6.4-8.2) Albumin 3.8 g/dL (3.4-5.0) Albumin/Globulin Ratio 1.1 (1.0-1.7) Lipase 66 U/L (73-393) Images Images PORTABLE CHEST 1V History: Reason: soa / Spl. Instructions: / History: Comparison: July 25, 2018 Findings: No consolidation or pleural effusion. Normal heart size. No pneumothorax. Impression: 1. No acute cardiopulmonary process. Electronically signed by: Wes Gabriel DO (01/02/2020 2:07 PM) [facility] Assessment/Plan Assessment/Plan IMP SUE WITH CR OF 2.9 CKD STAGE 3 WITH CR OF 1.5-2.0 DYSPNEA HX OF LE EDEMA DM II HTN PLAN HOLD DIURETICS REPEAT LABS TODAY IF CR TRENDING DOWN THEN OK TO D/C D/W ATTENDING MEGAN MORA MD Jan 03, 2020 12:08
--- NOTE | 2020-01-03 12:33 | PDOC2 ---
MARIBEL OZUNA HARP MAKER 01/03/20 1233: CARDIAC CONSULT DATE OF CONSULT Date of Consult DATE: 01/03/20 TIME: 12:13 REASON FOR CONSULT Reason for Consult: SOA, edema, chest pain REFERRING PHYSICIAN Referring Physician: Ruben SOURCE Source: Chart review, Patient HISTORY OF PRESENT ILLNESS HISTORY OF PRESENT ILLNESS This is a pleasant 64 yo male admitted for complains of dizziness. He has been working outdoors in the last several days to which outdoor temp sometimes reaches over 100 degrees. 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 He does drink quite of a bit of water sometimes a gallon a day as he significant sweat profusely when outside but his intake has decreased in the last few days. Further more he also takes a diuretic for HTN and also for his chronic leg edema. Prior to admission he started having dizziness and had some brief dull left chest pain localixed below the nipple and nonradiating. No SOA, palpitations and no fever. Denies any past hx of CAD but significant hx of HTN, HLP and DM2. He does have chronic leg edema and this has not changed. PAST MEDICAL HISTORY Past Medical History Cardiovascular: CAD (nonobstructive), HTN, Hyperlipidemia, Other (chronic leg edema) Pulmonary: Asthma CENTRAL NERVOUS SYSTEM: Other (No pertinent history) GI: No pertinent hx Heme/Onc: No pertinent hx Hepatobiliary: No pertinent hx Psych: No pertinent hx Musculoskeletal: low back pain, Osteoarthritis, Other (morbid obesity; cervical stenosis) Endocrine: Diabetes (2) PAST SURGICAL HISTORY Past Surgical History LHC, Cataract Removal, Tonsillectomy, Other (bilateral wristsurgery) FAMILY HISTORY Family History noncontributory SOCIAL HISTORY Smoke: No ALCOHOL: none Drugs: None Lives: with Family CURRENT MEDICATIONS CURRENT MEDICATIONS Current Medications Medications (Trade) Dose Ordered Sig/Pradeep Route PRN Reason Start Time Stop Time Status Last Admin Dose Admin Sodium Chloride 1,000 ml @ 1,000 mls/hr 1X ONCE IV 01/02/20 15:45 01/02/20 16:44 DC 01/02/20 15:55 Atorvastatin Calcium (Lipitor) 20 mg HS PO 01/02/20 21:00 01/02/20 21:27 Lisinopril (Prinivil) 40 mg DAILY PO 01/03/20 09:00 01/03/20 08:39 Oxycodone/ Acetaminophen (Percocet 10/325) 1 tab Q8HRS PO 01/02/20 22:00 01/02/20 21:38 ALLERGIES ALLERGIES: Coded Allergies: Sulfa (Sulfonamide Antibiotics) (Unverified Allergy, Intermediate, Rash, 11/04/17) ROS Review of System 14 point ROS evaluated with pertinent positives noted per HPI PHYSICAL EXAM PHYSICAL EXAM Discussed with RN General: Alert, Oriented X3, Cooperative, No acute distress HEENT: Atraumatic Lungs: Clear to auscultation (CXR reviewed) Heart: Regular rate (SR) Abdomen: No tenderness Extremities: No cyanosis, Other (chronic leg edema) Skin: No breakdown Neuro: Normal speech, Sensation intact Psych/Mental Status: Mental status NL, Other (irritable) MUSCULOSKELETAL: Osteoarthritic changes both hands VITALS/I&O VITALS/I&O: Vital Signs Date Time Temp Pulse Resp B/P (MAP) Pulse Ox O2 Delivery O2 Flow Rate FiO2 01/03/20 11:04 97.7 67 23 165/74 (104) 93 Nasal Cannula 97.7 I & O 01/02/20 01/02/20 01/03/20 15:00 23:00 07:00 Intake Total 1000 ml Output Total 200 ml Balance 800 ml LABS Lab: Laboratory Tests Test 01/02/20 13:22 White Blood Count 5.9 x10^3/uL (4.0-11.0) Red Blood Count 4.55 x10^6/uL (4.30-5.70) Hemoglobin 13.4 g/dL (13.0-17.5) Hematocrit 39.4 % (39.0-53.0) Mean Corpuscular Volume 87 fL (79-100) Mean Corpuscular Hemoglobin 30 pg (25-35) Mean Corpuscular Hemoglobin Concent 34 g/dL (31-37) Red Cell Distribution Width 14.3 % (11.5-14.5) Platelet Count 182 x10^3/uL (140-400) Neutrophils (%) (Auto) 69 % (31-73) Lymphocytes (%) (Auto) 19 % (24-48) L Monocytes (%) (Auto) 7 % (0-9) Eosinophils (%) (Auto) 4 % (0-3) H Basophils (%) (Auto) 1 % (0-3) Neutrophils # (Auto) 4.1 x10^3/uL (1.8-7.7) Lymphocytes # (Auto) 1.1 x10^3/uL (1.0-4.8) Monocytes # (Auto) 0.4 x10^3/uL (0.0-1.1) Eosinophils # (Auto) 0.2 x10^3/uL (0.0-0.7) Basophils # (Auto) 0.0 x10^3/uL (0.0-0.2) Prothrombin Time 13.3 SEC (11.7-14.0) Prothrombin Time INR 1.1 (0.8-1.1) Activated Partial Thromboplast Time 27 SEC (24-38) Sodium Level 136 mmol/L (136-145) Potassium Level 4.8 mmol/L (3.5-5.1) Chloride Level 103 mmol/L (98-107) Carbon Dioxide Level 27 mmol/L (21-32) Anion Gap 6 (6-14) Blood Urea Nitrogen 54 mg/dL (8-26) H Creatinine 2.9 mg/dL (0.7-1.3) H Estimated GFR (Cockcroft-Gault) 22.2 BUN/Creatinine Ratio 19 (6-20) Glucose Level 104 mg/dL (70-99) H Calcium Level 8.9 mg/dL (8.5-10.1) Magnesium Level 2.2 mg/dL (1.8-2.4) Total Bilirubin 0.4 mg/dL (0.2-1.0) Aspartate Amino Transferase (AST) 15 U/L (15-37) Alanine Aminotransferase (ALT) 31 U/L (16-63) Alkaline Phosphatase 47 U/L (46-116) Troponin I Quantitative < 0.017 ng/mL (0.000-0.055) EP-Ffx-T-Type Natriuretic Peptide 257 pg/mL (0-124) H Total Protein 7.4 g/dL (6.4-8.2) Albumin 3.8 g/dL (3.4-5.0) Albumin/Globulin Ratio 1.1 (1.0-1.7) Lipase 66 U/L (73-393) L Laboratory Tests 01/02/20 13:22 Laboratory Tests 01/02/20 13:22 ECHOCARDIOGRAM ECHOCARDIOGRAM <Conclusion> The left ventricle is normal size. The left ventricular systolic function is normal and the ejection fraction is within normal range. The Ejection Fraction is 55-60%. There is mild concentric left ventricular hypertrophy. There is no significant aortic valvular stenosis. Doppler and Color Flow revealed no significant aortic regurgitation. Doppler and Color Flow revealed no mitral valve regurgitation noted. Doppler and Color Flow revealed no tricuspid valve regurgitation noted. The ascending aorta is mildly dilated. DATE: 07/26/18 1257 STRESS TEST STRESS TEST Conclusion 1. Regadenoson cardioisotope stress test did not show any evidence of ischemia or infarct. 2. Normal left ventricular systolic function with ejection fraction calculated at 69%. 3. Low risk for cardiac events. DATE: 09/15/18 1323 HEART CATH HEART CATH Conclusion 1. Nonobstructive coronary artery disease 2. Normal left ventricle systolic function with ejection fraction estimated at 60% 3. No significant mitral regurgitation or aortic stenosis Recommendations Medical management and risk factor modification DATE: 06/18/15 1127 ASSESSMENT/PLAN ASSESSMENT/PLAN 1. Chest pain: possibly MSK. Covid PCR pending 2. Chronic leg edema/venous insufficiency 3. SUE on CKD3: Cr 2.9 Nephrology consulted 4. JAIME: no CPAP use due to insurance 5. Morbid obesity 6. Nonobstructive CAD: clinically stable 7. HLP 8. HTN: controlled 9. DM2 10. Dizziness: possibly from dehydration and heat exhaustion. None further since admission. No arrhythmias Recommendations 1. Pt is hurrying up to go home. If does get discharged then will need to follow up in office. 2. At this time may hold maxide, janumet, and lisinopril given his renal insufficiency. BMP and CK today. 3. Outpt TTE 4. Continue secondary prevention measures. JAYRO NASH MD 01/04/20 0920: CARDIAC CONSULT ASSESSMENT/PLAN ASSESSMENT/PLAN Patient seen and evaluated on 01/03/20. Agree with our nurse practitioners assessment and plan as above. Chest discomfort. No acute EKG changes. Initial troponins normal. No arrhythmias. Continue present treatment. Probable outpatient echo and follow- up. History of nonobstructive coronary artery disease. Continuing medical treatment. Acute kidney injury. Creatinine 2.9. IV fluids. Renal to evaluate. Controlled hypertension. Continue telemetry. Dizziness. Rhythm has been stable. Probably secondary to dehydration and heat exhaustion as above. Obstructive sleep apnea. Obesity. Thank you for allowing us to participate in the care of your patient. MARIBEL OZUNA APRN Jan 03, 2020 12:33 JAYRO NASH MD Jan 04, 2020 09:47
[2020-01-03 14:06] LABS: CALCIUM 9.2 mg/dL (8.5-10.1); MAGNESIUM 2.1 mg/dL (1.8-2.4); POTASSIUM 4.3 mmol/L (3.5-5.1)
[2020-01-03 14:13] LABS: CHOLESTEROL/HDL RATIO 4.9
--- NOTE | 2020-01-03 14:27 | NUR ---
Ok to discharge according to Dr. Miranda and Dr. Khalil : Cr trending down 2.0.
[2020-01-03 15:03] VITALS: BP 160/75
--- NOTE | 2020-01-03 15:22 | NUR ---
Discharge Note: AKILA HOLBROOK Discharge instructions and discharge home medications reviewed with Patient and a copy given. All questions have been answered and understanding verbalized. The following instructions and handouts were given: follow up instructions given. Discontinued lines and drains: catheter tip intact. Patient tolerated well. Patient discharged to home with self care.
== END 2020-01-03 15:25 | disposition home or self-care (01) | DRG 391 ==
LOC: ER 12:57 → ED HOLD 16:10 → 6 SOUTH 17:36
PROVIDERS: ADMIT Internal Medicine; ATTEND Internal Medicine
DX: K21.9 Gastro-esophageal reflux disease without esophagitis (principal); N17.0 Acute kidney failure with tubular necrosis; Z68.43 Body mass index [BMI] 50.0-59.9, adult; E11.22 Type 2 diabetes mellitus with diabetic chronic kidney disease; E66.01 Morbid (severe) obesity due to excess calories; E78.00 Pure hypercholesterolemia, unspecified; E78.5 Hyperlipidemia, unspecified; E86.0 Dehydration; G47.33 Obstructive sleep apnea (adult) (pediatric); G89.29 Other chronic pain; I12.9 Hypertensive chronic kidney disease with stage 1 through stage 4 chronic kidney disease, or unspecified chronic kidney disease; Z20.828 Contact with and (suspected) exposure to other viral communicable diseases; I25.10 Atherosclerotic heart disease of native coronary artery without angina pectoris; I87.2 Venous insufficiency (chronic) (peripheral); J45.909 Unspecified asthma, uncomplicated; M19.90 Unspecified osteoarthritis, unspecified site; N18.3 Chronic kidney disease, stage 3 (moderate); X30.XXXA Exposure to excessive natural heat, initial encounter; Z83.3 Family history of diabetes mellitus; Z91.19 Patient's noncompliance with other medical treatment and regimen; Z79.899 Other long term (current) drug therapy; Z88.2 Allergy status to sulfonamides
CPT/HCPCS: 36415; 71045; 80048; 80053; 80061; 82550; 83690; 83735; 83880; 84443; 84484; 85025; 85610; 85730; 93005; 96360; 99285; J7030; G0378; U0003-CS

== ENCOUNTER → 2021-02-21 | Outpatient (CLI) | payer OTHER, MEDICAID ==
[~2021-02-21] MED LIST changes: +AMLO-186 PO; +AMLO-187 PO; -AMLO10TA8 PO; -AMLO5TAB10 PO; -ETOD400T PO; +ETOD400T3 PO
[2021-02-21 14:48] LABS: BILIRUBIN,URINE NEGATIVE (NEG); CLARITY,URINE CLEAR; COLOR,URINE YELLOW; NITRITE,URINE NEGATIVE (NEG); PH,URINE 5.5 (<5.0-8.0); PROTEIN,URINE NEGATIVE (NEG-TRACE)
[2021-02-21 15:02] LABS: ALBUMIN 3.9 g/dL (3.4-5.0); ALBUMIN/GLOBULIN RATIO 1.1 (1.0-1.7); CALCIUM 8.9 mg/dL (8.5-10.1); CREATININE 1.3 mg/dL (0.7-1.3); GFR 55.8; POTASSIUM 4.2 mmol/L (3.5-5.1); TOTAL BILIRUBIN 0.3 mg/dL (0.2-1.0); TOTAL PROTEIN 7.6 g/dL (6.4-8.2)
[2021-02-21 15:11] LABS: BACTERIA,URINE 0 /HPF (0-FEW); RBC,URINE 0 /HPF (0-2); WBC,URINE 0 /HPF (0-4)
[2021-02-22 01:24] LABS: CREAT RD UR 219.7 mg/dL (Not Estab.); MICROALB RD UR 85.1 ug/mL (Not Estab.)
== END ==
LOC: LAB 13:48
PROVIDERS: ATTEND Internal Medicine
DX: Z12.5 Encounter for screening for malignant neoplasm of prostate (principal); E11.22 Type 2 diabetes mellitus with diabetic chronic kidney disease; E11.40 Type 2 diabetes mellitus with diabetic neuropathy, unspecified; N18.2 Chronic kidney disease, stage 2 (mild)
CPT/HCPCS: 80053; 81001; 82043; 82570; 83036; G0103